=== PATIENT | female | born 1945 | race Caucasian/White ===

== ENCOUNTER 2016-09-01 09:20 | Emergency (ER) | payer MEDICARE ==
[2016-09-01] MEDS ORDERED: Labetalol IV* 5 MG/ML 20 ML VIAL IV PUSH ONE (10:13)
[2016-09-01 10:35] LABS: Hematocrit 40 % (35-47); Mean Corpuscular HGB Conc 32 g/dl (31-36); Mean Corpuscular Hemoglobin 27 pg (27-31); Mean Corpuscular Volume 82 fL (80-97); Mean Platelet Volume 8 um3 (7.4-10.4); Red Cell Distribution Width 14 % (10.5-15); White Blood Count 6.9 10^3/ul (3.5-10.8)
[2016-09-01 10:49] LABS: Urine Bilirubin Negative (Negative); Urine Glucose 1+(50 mg/dL) (Negative); Urine Nitrite Negative (Negative)
[2016-09-01 10:52] LABS: Albumin 4.2 g/dL (3.2-5.2); BUN/Creatinine Ratio 19.8 (8-20); Calcium 9.5 mg/dL (8.6-10.3); EGFR African American 84.1 (>60); EGFR Non-African American 65.4 (>60); Globulin 2.7 g/dL (2-4); Potassium 3.8 mmol/L (3.5-5.0); Total Bilirubin 0.6 mg/dL (0.2-1.0); Total Protein 6.9 g/dL (6.4-8.9)
[2016-09-01] MEDS ORDERED: Carvedilol TAB* 25 MG PO ONE (11:16)
[2016-09-01 11:24] LABS: TSH (Thyroid Stimulating Horm) 1.17 mcIU/mL (0.34-5.60)
[2016-09-01] MEDS ORDERED: Carvedilol TAB* 6.25 MG ONE (11:27)
[2016-09-01 13:08] VITALS: BP 131/92
--- NOTE | 2016-09-01 13:53 | ED ---
Garett Miller Matthew, scribed for Eddie Tsai MD on 09/01/16 at 1029 . Hypertension - HPI Summary HPI Summary: A 71 y/o female presents to the ED with an evaluated BP from Dr. Holt's office this morning. The patient was receiving a routine colonoscopy. She did not take her 25mg of Coreg this morning, which has been her dose for the last 3 years. The patient last saw her PCP in June and her mediation was not changed at that time. The patient is asymptomatic. She denies chest pain, SOB, headache, visual changes, urinary symptoms, pedal edema, coughing, and back pain. Her blood pressure was 240/131 upon arrival. - History of Current Complaint Chief Complaint: EDHypertension Stated Complaint: HIGH BLOOD PRESSURE Time Seen by Provider: 09/01/16 09:44 Hx Obtained From: Patient Onset/Duration: Started Days Ago, Atraumatic, Still Present Timing: Constant Aggravating Factor(s): Nothing Alleviating Factor(s): Nothing Associated Signs & Symptoms: Negative - Allergies/Home Medications Allergies/Adverse Reactions: Allergies Allergy/AdvReac Type Severity Reaction Status Date / Time No Known Allergies Allergy Verified 01/31/16 08:41 PMH/Surg Hx/FS Hx/Imm Hx Cardiovascular History: Reports: Hx Hypercholesterolemia, Hx Hypertension Musculoskeletal History: Denies: Hx Osteoporosis - Cancer History Hx Chemotherapy: No Hx Radiation Therapy: No Infectious Disease History: No Infectious Disease History: Denies: Traveled Outside the [place] in Last 30 Days - Family History Family History: FHx of asthma - father. FHx of CHF - mother. NO FHx of Colon CA. NO FHx of Breast CA - Social History Alcohol Use: None Substance Use Type: Reports: None Hx Tobacco Use: No Smoking Status (MU): Never Smoked Tobacco Review of Systems Constitutional: Negative Eyes: Negative ENT: Negative Cardiovascular: Negative Negative: Chest Pain Respiratory: Negative Negative: Shortness Of Breath, Cough Gastrointestinal: Negative Genitourinary: Negative Musculoskeletal: Negative Negative: Myalgia, Edema Skin: Negative Neurological: Negative Psychological: Normal All Other Systems Reviewed And Are Negative: Yes Physical Exam - Summary Physical Exam Summary: The patient is well-nourished in no acute distress and in no acute pain. The skin is warm and dry and skin color reflects adequate perfusion. HEENT: The head is normocephalic and atraumatic. The pupils are equal and reactive. The conjunctivae are clear and without drainage. Nares are patent and without drainage. Mouth reveals moist mucous membranes and the throat is without erythema and exudate. The external ears are intact. The ear canals are patent and without drainage. The tympanic membranes are intact. Neck is supple with full range of motion and non-tender. There are no carotid bruits. There is no neck vein distension. Respiratory: Chest is non-tender. Lungs are clear to auscultation and breath sounds are symmetrical and equal. Cardiovascular: Heart is regular rate and rhythm. There is no murmur or rub auscultated. There is no peripheral edema and pulses are symmetrical and equal. Abdomen: The abdomen is soft and non-tender. There are normal bowel sounds heard in all four quadrants and there is no organomegaly palpated. Musculoskeletal: There is no back pain noted. Extremities are non-tender with full range of motion. There is good capillary refill. There is no peripheral edema or calf tenderness elicited. Neurological: Patient is alert and oriented to person, place and time. The patient has symmetrical motor strength in all four extremities. Cranial nerves are grossly intact. Deep tendon reflexes are symmetrical and equal in all four extremities. Psychiatric: The patient has an appropriate affect and does not exhibit any anxiety or depression. Funduscopic exam was normal Triage Information Reviewed: Yes Vital Signs On Initial Exam: Initial Vitals Temp Pulse Resp BP Pulse Ox 98.7 F 86 16 240/131 96 09/01/16 09:33 09/01/16 09:33 09/01/16 09:33 09/01/16 09:33 09/01/16 09:33 Vital Signs Reviewed: Yes - [place] Coma Scale Coma Scale Total: 15 Diagnostics - Vital Signs Vital Signs Temp Pulse Resp BP Pulse Ox 09/01/16 09:33 98.7 F 86 16 240/131 96 - Laboratory Lab Results: Lab Results 09/01/16 09/01/16 09/01/16 Range/Units 10:25 10:25 10:40 WBC 6.9 (3.5-10.8) 10^3/ul RBC 4.90 (4.0-5.4) 10^6/ul Hgb 13.0 (12.0-16.0) g/dl Hct 40 (35-47) % MCV 82 (80-97) fL MCH 27 (27-31) pg MCHC 32 (31-36) g/dl RDW 14 (10.5-15) % Plt Count 244 (150-450) 10^3/ul MPV 8 (7.4-10.4) um3 Neut % (Auto) 73.7 (38-83) % Lymph % (Auto) 18.5 L (25-47) % [place] % (Auto) 4.9 (1-9) % Eos % (Auto) 1.5 (0-6) % Baso % (Auto) 1.4 (0-2) % Absolute Neuts (auto) 5.1 (1.5-7.7) 10^3/ul Absolute Lymphs (auto) 1.3 (1.0-4.8) 10^3/ul Absolute Monos (auto) 0.3 (0-0.8) 10^3/ul Absolute Eos (auto) 0.1 (0-0.6) 10^3/ul Absolute Basos (auto) 0.1 (0-0.2) 10^3/ul Absolute Nucleated RBC 0 10^3/ul Nucleated RBC % 0.1 Sodium 136 (133-145) mmol/L Potassium 3.8 (3.5-5.0) mmol/L Chloride 99 L (101-111) mmol/L Carbon Dioxide 26 (22-32) mmol/L Anion Gap 11 (2-11) mmol/L BUN 17 (6-24) mg/dL Creatinine 0.86 (0.51-0.95) mg/dL Est GFR ( Amer) 84.1 (>60) Est GFR (Non-Af Amer) 65.4 (>60) BUN/Creatinine Ratio 19.8 (8-20) Glucose 116 H (70-100) mg/dL Calcium 9.5 (8.6-10.3) mg/dL Total Bilirubin 0.60 (0.2-1.0) mg/dL AST 16 (13-39) U/L ALT 17 (7-52) U/L Alkaline Phosphatase 90 (34-104) U/L Troponin I 0.00 (<0.04) ng/mL Total Protein 6.9 (6.4-8.9) g/dL Albumin 4.2 (3.2-5.2) g/dL Globulin 2.7 (2-4) g/dL Albumin/Globulin Ratio 1.6 (1-3) TSH 1.17 (0.34-5.60) mcIU/mL Urine Color Colorless Urine Appearance Clear Urine pH 8.0 (5-9) Ur Specific [place] 1.006 L (1.010-1.030) Urine Protein Negative (Negative) Urine Ketones Trace H (Negative) Urine Blood Negative (Negative) Urine Nitrate Negative (Negative) Urine Bilirubin Negative (Negative) Urine Urobilinogen Negative (Negative) Ur Leukocyte Esterase Negative (Negative) Urine Glucose 1+(50 mg/dl) H (Negative) Result Diagrams: 09/01/16 10:25 09/01/16 10:25 Lab Statement: Any lab studies that have been ordered have been reviewed, and results considered in the medical decision making process. - EKG 09:42 Cardiac Rate: NL - 88 bpm EKG Rhythm: Sinus Rhythm EKG Interpretation: Low Voltage; Poor R Wave Progression Hypertension Course/Dx - Course Assessment/Plan: A 71 y/o female presents to the ED with an evaluated BP from Dr. Holt's office this morning. The patient is asymptomatic. She denies chest pain, SOB, headache, visual changes, urinary symptoms, pedal edema, coughing, and back pain. The patient was given 25mg of Coreg and 20mg of Labetalol in the ED course. Her blood pressure is 119/86. She will be discharged home and follow-up with her PCP. - Diagnoses Differential Diagnosis/HQI PQRI: Hypertension, Hypertensive Crisis, Hypertensive Urgency Provider Diagnoses: Hypertension, Dehydration Discharge - Discharge Plan Condition: Stable Disposition: HOME Patient Education Materials: Hypertension (ED) Referrals: Juan Sims MD [Primary Care Provider] - 2 Days Additional Instructions: Please follow-up with your primary care physician in two days. Please continue your blood pressure medication as prescribed and take baby aspirin daily. Also, please check your blood pressure regularly at [facility] or your physician's office. The documentation as recorded by the Garett jones Matthew accurately reflects the service I personally performed and the decisions made by me, Eddie Tsai MD.
== END 2016-09-01 13:06 | disposition home or self-care (01) ==
LOC: ED 09:20
DX: I10 Essential (primary) hypertension (principal); E78.00 Pure hypercholesterolemia, unspecified
CPT/HCPCS: 36415; 80053; 81003; 84443; 84484; 85025; 93005; 96365; 96374; 99283; A9270-GY

== ENCOUNTER 2016-10-18 19:28 | Emergency (ER) | payer MEDICARE ==
[2016-10-18] MEDS ORDERED: Labetalol IV* 5 MG/ML 20 ML VIAL IV PUSH ONE (20:35)
[2016-10-18 20:45] LABS: Hematocrit 40 % (35-47); Hemoglobin 12.7 g/dl (12.0-16.0); Mean Corpuscular HGB Conc 32 g/dl (31-36); Mean Corpuscular Hemoglobin 26 pg (27-31); Mean Corpuscular Volume 82 fL (80-97); Mean Platelet Volume 8 um3 (7.4-10.4); Red Blood Count 4.85 10^6/ul (4.0-5.4); Red Cell Distribution Width 15 % (10.5-15); White Blood Count 9.2 10^3/ul (3.5-10.8)
[2016-10-18 20:59] LABS: Albumin 4.4 g/dL (3.2-5.2); BUN/Creatinine Ratio 23.1 (8-20); Calcium 10.2 mg/dL (8.6-10.3); EGFR African American 67.6 (>60); EGFR Non-African American 52.5 (>60); Globulin 2.6 g/dL (2-4); Potassium 3.9 mmol/L (3.5-5.0); Total Bilirubin 0.4 mg/dL (0.2-1.0)
--- NOTE | 2016-10-18 21:08 | RAD ---
INDICATION: Hypertensive crisis COMPARISON: Chest x-ray May 07, 2009 TECHNIQUE: An AP portable view obtained at 2053 hours is submitted. FINDINGS: Bones/Soft Tissues: There are no acute bony findings. Cardiomediastinal: The cardiomediastinal silhouette is normal. Lungs: There are no infiltrates. Pleura: There are no pleural effusions. Other: None IMPRESSION: NO ACTIVE DISEASE.
[2016-10-18 22:23] LABS: Urine Bacteria 1+ (Absent); Urine Bilirubin Negative (Negative); Urine Glucose Negative (Negative); Urine Nitrite Negative (Negative)
--- NOTE | 2016-10-18 22:39 | ED ---
Hypertension - HPI Summary HPI Summary: Patient presents to ED with BP at 211/122 and exhibiting no symptoms. Patient sent here by Dr. Sims's office after Dr. Sims spoke with Dr. Carpenter today about patient. Patient explains she has not been seen by a transfusion aide, but has an appt with Dr. Carpenter on 10/31/16. She also has an appt with Dr. Sims' s office again on 10/20/16 (2 days from now) for a 24 hour blood pressure monitoring. Patient states she was told by her PCP she would most likely stay overnight for BP control and a slow decrease of BP with IV medications. Patient was recently started on a new medication today, but has not taken it yet since she has come to the ED. Denies visual changes, DANIEL, urinary symptoms, back pain, weakness or fatigue. Patient states she is otherwise healthy and only takes medications for BP. This has been a long standing issue for her and has been attempted to be treated as an outpatient with some difficulty. - History of Current Complaint Chief Complaint: EDHypertension Stated Complaint: HIGH BLOOD PRESSURE Time Seen by Provider: 10/18/16 20:25 Hx Obtained From: Patient Onset/Duration: Started Hours Ago Timing: Constant Aggravating Factor(s): Nothing Alleviating Factor(s): Nothing Associated Signs & Symptoms: Negative Related Hx: Similar Episode, Diagnosed As: - uncontrolled HTN - Risk Factors Cardiac Risk Factors: Hypertension, Elevated Lipids - Allergies/Home Medications Allergies/Adverse Reactions: Allergies Allergy/AdvReac Type Severity Reaction Status Date / Time No Known Allergies Allergy Verified 01/31/16 08:41 PMH/Surg Hx/FS Hx/Imm Hx Previously Healthy: Yes Cardiovascular History: Reports: Hx Hypercholesterolemia, Hx Hypertension Musculoskeletal History: Denies: Hx Osteoporosis - Cancer History Hx Chemotherapy: No Hx Radiation Therapy: No Infectious Disease History: No Infectious Disease History: Denies: Traveled Outside the [place] in Last 30 Days - Family History Family History: FHx of asthma - father. FHx of CHF - mother. NO FHx of Colon CA. NO FHx of Breast CA - Social History Occupation: Retired Alcohol Use: None Hx Substance Use: No Substance Use Type: Reports: None Hx Tobacco Use: No Smoking Status (MU): Never Smoked Tobacco Review of Systems Constitutional: Negative Eyes: Negative Cardiovascular: Negative Respiratory: Negative Gastrointestinal: Negative Genitourinary: Negative Positive: no symptoms reported, see HPI Musculoskeletal: Negative Neurological: Negative Psychological: Normal All Other Systems Reviewed And Are Negative: Yes Physical Exam Triage Information Reviewed: Yes Vital Signs On Initial Exam: Initial Vitals Temp Pulse Resp BP Pulse Ox 96.5 F 87 16 211/122 97 10/18/16 19:30 10/18/16 19:30 10/18/16 19:30 10/18/16 19:30 10/18/16 19:30 Vital Signs Reviewed: Yes Appearance: Positive: Well-Appearing, No Pain Distress, Well-Nourished Skin: Positive: Warm, Skin Color Reflects Adequate Perfusion Head/Face: Positive: Normal Head/Face Inspection Eyes: Positive: EOMI, JOE, Conjunctiva Clear ENT: Positive: Hearing grossly normal Neck: Positive: Nontender, No Lymphadenopathy Respiratory/Lung Sounds: Positive: Clear to Auscultation, Breath Sounds Present Cardiovascular: Positive: Normal, RRR, Pulses are Symmetrical in both Upper and Lower Extremities Musculoskeletal: Positive: Normal, Strength/ROM Intact Neurological: Positive: Normal, Sensory/Motor Intact, Alert, Oriented to Person Place, Time, Speech Normal Psychiatric: Positive: Normal AVPU Assessment: Alert - [place] Coma Scale Coma Scale Total: 15 Diagnostics - Vital Signs Vital Signs Temp Pulse Resp BP Pulse Ox 10/18/16 21:40 18 10/18/16 21:35 17 151/94 10/18/16 21:30 20 165/110 10/18/16 21:25 19 159/98 10/18/16 21:20 77 19 164/102 96 10/18/16 21:15 75 16 162/105 95 10/18/16 21:10 76 18 154/100 96 10/18/16 21:05 75 14 152/92 96 10/18/16 21:00 74 15 149/108 96 10/18/16 20:55 73 17 136/92 97 10/18/16 20:50 74 16 144/88 96 10/18/16 20:49 97.8 F 71 17 202/115 96 10/18/16 20:48 78 20 125/81 97 10/18/16 20:45 83 12 97 10/18/16 20:40 78 18 96 10/18/16 20:35 75 17 96 10/18/16 20:30 70 11 95 10/18/16 20:28 202/115 10/18/16 20:22 97.3 F 70 12 202/115 97 10/18/16 19:30 96.5 F 87 16 211/122 97 - Laboratory Lab Results: Lab Results 10/18/16 10/18/16 10/18/16 Range/Units 20:40 20:40 20:40 WBC 9.2 (3.5-10.8) 10^3/ul RBC 4.85 (4.0-5.4) 10^6/ul Hgb 12.7 (12.0-16.0) g/dl Hct 40 (35-47) % MCV 82 (80-97) fL MCH 26 L (27-31) pg MCHC 32 (31-36) g/dl RDW 15 (10.5-15) % Plt Count 290 (150-450) 10^3/ul MPV 8 (7.4-10.4) um3 Neut % (Auto) 66.4 (38-83) % Lymph % (Auto) 24.4 L (25-47) % [place] % (Auto) 6.4 (1-9) % Eos % (Auto) 1.8 (0-6) % Baso % (Auto) 1.0 (0-2) % Absolute Neuts (auto) 6.1 (1.5-7.7) 10^3/ul Absolute Lymphs (auto) 2.3 (1.0-4.8) 10^3/ul Absolute Monos (auto) 0.6 (0-0.8) 10^3/ul Absolute Eos (auto) 0.2 (0-0.6) 10^3/ul Absolute Basos (auto) 0.1 (0-0.2) 10^3/ul Absolute Nucleated RBC 0 10^3/ul Nucleated RBC % 0 Sodium 137 (133-145) mmol/L Potassium 3.9 (3.5-5.0) mmol/L Chloride 101 (101-111) mmol/L Carbon Dioxide 28 (22-32) mmol/L Anion Gap 8 (2-11) mmol/L BUN 24 (6-24) mg/dL Creatinine 1.04 H (0.51-0.95) mg/dL Est GFR ( Amer) 67.6 (>60) Est GFR (Non-Af Amer) 52.5 (>60) BUN/Creatinine Ratio 23.1 H (8-20) Glucose 100 (70-100) mg/dL Lactic Acid 0.8 (0.5-2.0) mmol/L Calcium 10.2 (8.6-10.3) mg/dL Total Bilirubin 0.40 (0.2-1.0) mg/dL AST 15 (13-39) U/L ALT 18 (7-52) U/L Alkaline Phosphatase 68 (34-104) U/L Total Protein 7.0 (6.4-8.9) g/dL Albumin 4.4 (3.2-5.2) g/dL Globulin 2.6 (2-4) g/dL Albumin/Globulin Ratio 1.7 (1-3) Result Diagrams: 10/18/16 20:40 10/18/16 20:40 Lab Statement: Any lab studies that have been ordered have been reviewed, and results considered in the medical decision making process. Hypertension Course/Dx - Course Course Of Treatment: Patient given labetolol 10mg. RN noticed SBP drop from 210 to 160. Did not push the other 10mg ordered. Patient hovering at 160/100 for the next hour while under observation. Dr. Shelby office called. Provider Dr. Charly little not familiar with patient but advised may discharge home with BP of 160/110. Cad[address] Kraft consulted. Dr. Kraft states comfortable with discharge home with controlled BP and to resume all home medications as prescribed and continue with follow up with Dr. Shelby's office on for 24 hour BP cuff. Patient understands and is accepting of plan. UA shows RBC and leuks. Patient not experiencing UTI symptoms, but will treat. First dose Keflex given in ED. Rx sent. Will await cultures. - Diagnoses Differential Diagnosis/HQI PQRI: Hypertension, Hypertensive Crisis, Hypertensive Urgency Provider Diagnoses: Hypertension Discharge - Discharge Plan Condition: Stable Disposition: HOME Prescriptions: Cephalexin CAP* [Keflex 500 CAP*] 500 mg PO BID #10 cap Cephalexin CAP* [Keflex 500 CAP*] 500 mg PO BID #10 cap MDD 2 Patient Education Materials: Urinary Tract Infection in Women (ED) Referrals: Juan Sims MD [Primary Care Provider] - Additional Instructions: Follow up with DR. Sims's office on . Keep follow up appt with Dr. Carpenter. Continue on antibiotics for 5 days. If you develop any symptoms such as headache, visual changes or urinary symptoms , come back to ED.
[2016-10-18] MEDS ORDERED: Cephalexin CAP* 500 MG PO ONE (22:57)
[2016-10-18 23:10] VITALS: BP 183/105
--- NOTE | 2016-10-21 16:44 | ED ---
Progress - Progress Note Progress Note: Pt's prelim urine cx reveals e. coli 25-50,000 - pt d/c'd on keflex - advised to f/u w/ PCP today. No further action necessary at this time. Course/Dx - Course Course Of Treatment: Patient given labetolol 10mg. RN noticed SBP drop from 210 to 160. Did not push the other 10mg ordered. Patient hovering at 160/100 for the next hour while under observation. Dr. Shelby office called. Provider Dr. Charly little not familiar with patient but advised may discharge home with BP of 160/110. Cad[address] Kraft consulted. Dr. Kraft states comfortable with discharge home with controlled BP and to resume all home medications as prescribed and continue with follow up with Dr. Shelby's office on for 24 hour BP cuff. Patient understands and is accepting of plan. UA shows RBC and leuks. Patient not experiencing UTI symptoms, but will treat. First dose Keflex given in ED. Rx sent. Will await cultures. - Diagnoses Provider Diagnoses: Hypertension
== END 2016-10-18 23:07 | disposition home or self-care (01) ==
LOC: ED 19:28
DX: I10 Essential (primary) hypertension (principal)
CPT/HCPCS: 36415; 71010; 80053; 81003; 81015; 83605; 85025; 87077; 87086; 87186; 93005; 96374; 99283; A9270-GY